=== PATIENT | male | born 1955 | race Caucasian/White ===

== ENCOUNTER 2023-08-31 06:25 | Emergency (ER) | payer OTHER, MEDICARE ==
[2023-08-31 06:46] LABS: BASOPHILS PERCENT AUTO 0.4 % (0.2-1.2); EOSINOPHILS ABSOLUTE AUTO 0.2 x10^3/uL (0.0-0.5); EOSINOPHILS PERCENT AUTO 2.2 % (0.0-4.0); HEMATOCRIT 39.5 % (40.0-52.0); HEMOGLOBIN 13.5 g/dL (14.0-18.0); IMMATURE GRAN ABSOLUTE AUTO 0.01 x10^3/uL (0.00-0.07); LYMPHOCYTES ABSOLUTE AUTO 1.2 x10^3/uL (1.0-4.8); LYMPHOCYTES PERCENT AUTO 17.6 % (25.0-50.0); MEAN CORPUSCULAR HEMOGLOBIN 30.1 pg (26.0-32.0); MEAN CORPUSCULAR HGB CONC 34.2 g/dL (32.0-36.0); MONOCYTES ABSOLUTE AUTO 0.5 x10^3/uL (0.0-0.8); MONOCYTES PERCENT AUTO 6.7 % (2.0-11.0); NEUTROPHILS ABSOLUTE AUTO 4.9 x10^3/uL (1.8-7.7); PLATELET COUNT,PLT 198 x10^3/uL (130-400); RED BLOOD CELL COUNT 4.49 x10^6/uL (4.5-6.0); WHITE BLOOD CELL COUNT,WBC 6.8 x10^3/uL (4.0-10.0)
[2023-08-31 07:02] LABS: A/G RATIO 0.97; ALANINE AMINOTRANSFERASE,ALT 33 U/L (16-63); ALBUMIN 3.6 g/dL (3.4-5.0); ALKALINE PHOSPHATASE 65 U/L (46-116); ASPARTATE AMNIOTRANSFERASE,AST 16 U/L (15-37); BILIRUBIN TOTAL 0.6 mg/dL (0.2-1.0); BLOOD UREA NITROGEN,BUN 13 mg/dL (7-18); CALCIUM 8.8 mg/dL (8.5-10.1); CARBON DIOXIDE,CO2 24 mmol/L (21-32); CHLORIDE,CL 102 mmol/L (98-107); CREATININE 1.2 mg/dL (0.70-1.30); GLUCOSE RANDOM 252 mg/dL (70-99); PROTEIN TOTAL,TP 7.3 g/dL (6.4-8.2); SODIUM,NA 137 mmol/L (136-145)
[2023-08-31 07:04] LABS: ESTIMATED GFR 65 mL/min (>=60)
[2023-08-31] MEDS: Clopidogrel 75 MG Tab PO ONE (08:19)
[2023-08-31] MEDS: Aspirin 81 MG Tab.Chew PO ONE (08:19)
[2023-08-31] MEDS: Iopamidol 755 Mg/ML 100 ML Bottle IVPUSH ONE (08:34)
== END 2023-08-31 09:53 | disposition short-term general hospital (02) ==
LOC: VM.ED 06:25
DX: G45.9 Transient cerebral ischemic attack, unspecified (principal)
CPT/HCPCS: 36415; 70450; 70496; 80053; 84484; 85025; 93005; 93010; 99284; 99285; A9270; Q9967